=== PATIENT | male | born 1985 | race Caucasian/White ===

== ENCOUNTER 2019-05-10 16:42 | Emergency (ER) | payer SELFPAY ==
[~2019-05-10] VITALS: Ht 182.9 cm; Wt 80.0 kg
[~2019-05-10 16:42] MED LIST: OLAN20TA14 PO; RISP2TAB35 PO
[2019-05-10] MEDS ORDERED: CEFAZOLIN 1,000 MG IM ONE (17:00)
--- NOTE | 2019-05-10 17:00 | NUR ---
THIS IS A 33 YO M BIB EMS FROM [facility]. PT WAS AT [facility] FOR BILAT FOOT INFT, PT WAS COMBATIVE AND GIVEN B52. AFTER DC PT DEFECATED OUTSIDE ED. LAW ENFORCEMENT ESCORTED PT HERE AND RELEASED HIM FROM CUSTODY. PT IS DROWSY, EASILY AWAKENED. RESPONDING APPROPRIATELY TO QUESTIONS. RESP EVEN AND UNLABORED. NADN. CLOTHES REMOVED AND PLACED IN GOWN. RESTING ON [employer] W/ CALL LIGHT IN REACH. LAB IN ROOM.
--- NOTE | 2019-05-10 17:46 | NUR ---
LAB IN ROOM.
--- NOTE | 2019-05-10 17:50 | NUR ---
LAB REPORTS UNABLE TO DRAW BLOOD DUE TO SCAR TISSUE. WILL CONTACT ANOTHER TECH TO COME AND ATTEMPT.
[2019-05-10] MEDS ORDERED: CEFAZOLIN 1,000 MG ONE (17:52)
--- NOTE | 2019-05-10 18:02 | NUR ---
PT MEDICATED PER EMAR. ED DIET TRAY DELIVERED.
--- NOTE | 2019-05-10 18:15 | NUR ---
LAB UNABLE TO DRAW BLOOD. WENT IN ROOM TO ATTEMPT FEMORAL BLOOD DRAW. PT AGGRESSIVE AND UNCOOPERATIVE. PT REPORTS HE WANTS TO LEAVE.
== END 2019-05-10 19:27 | disposition home or self-care (01) ==
LOC: ED 17:00
DX: F19.10 Other psychoactive substance abuse, uncomplicated (principal); Z72.9 Problem related to lifestyle, unspecified
CPT/HCPCS: 96372; 99283; J0690

== ENCOUNTER 2019-05-13 08:11 | Inpatient (IN) | payer OTHER ==
[~2019-05-13] VITALS: Ht 188 cm; Wt 77.0 kg
--- NOTE | 2019-05-13 09:00 | NUR ---
requested records from [facility].
--- NOTE | 2019-05-13 09:00 | NUR ---
pt presents to ED in own wheelchair, however pt is ambulatory. pt seeking care for bilateral foot pain. pt wheeled to room at this time from lobby, pt denies cough, fever, travel or sick contacts. pt changed into gown and provided with warm blanket. awaiting provider assessment and orders at this time.
[2019-05-13] MEDS ORDERED: ACETAMINOPHEN 500 MG TABLET PO ONE (09:30)
[2019-05-13] MEDS ORDERED: KETOROLAC 30 MG/1 ML IM ONE (09:30)
[2019-05-13] MEDS ORDERED: IBUPROFEN 200 MG TABLET ONE (09:36)
[2019-05-13 09:41] LABS: BASOPHILS # (AUTO) 0.05 x10^3/uL (0-0.1); BASOPHILS % (AUTO) 1 % (0-1); EOSINOPHILS # (AUTO) 0.33 x10^3/uL (0-0.4); EOSINOPHILS % (AUTO) 3 % (1-7); LYMPHOCYTES # (AUTO) 1.84 x10^3/uL (1-3.4); LYMPHOCYTES % (AUTO) 19 % (22-44); MD NO; MEAN CORPUSCULAR HEMOGLOBIN 31.2 pg (27.5-34.5); MEAN CORPUSCULAR HGB CONC 32.7 g/dL (33.2-36.2); MEAN CORPUSCULAR VOLUME 95.6 fL (81-97); MEAN PLATELET VOLUME 7.7 fL (7.4-10.4); MONOCYTES # (AUTO) 0.93 x10^3/uL (0.2-0.8); MONOCYTES % (AUTO) 9 % (2-9); NEUTROPHILS % (AUTO) 68 % (42-75); PLATELET COUNT 332 x10^3/uL (130-400); RED BLOOD COUNT 4.45 x10^6/uL (4.38-5.82); RED CELL DISTRIBUTION WIDTH 15.3 % (9.4-14.8)
[2019-05-13 09:52] LABS: ALBUMIN 2.7 g/dL (3.4-5.0); ANION GAP 4 mmol/L (5-15); CHLORIDE 109 mmol/L (98-107); CREATININE 0.69 mg/dL (0.7-1.3)
--- NOTE | 2019-05-13 09:52 | NUR ---
CALLED [facility] FOR 2ND REQUEST FOR MEDICAL RECORDS
--- NOTE | 2019-05-13 09:58 | NUR ---
pt becoming agitated, seeking to leave AMA but also demanding percocet and benadryl for skin itchiness. pt c/o visual and auditory hallucinations, being abrasive to staff. RUSLAN Worthington notified. pts feet have been evaluated by RN and RUSLAN Worthington, there are multiple lesions to feet, psoriatic plaque throughout, and macerated skin to both feet. pt to have wound care as tolerated.
[2019-05-13] MEDS ORDERED: IBUPROFEN 800 MG TABLET PO ONE (10:00)
[2019-05-13] MEDS ORDERED: DIPHENHYDRAMINE 50 MG CAPSULE ONE (10:05)
[2019-05-13] MEDS ORDERED: ACETAMINOPHEN 500 MG TABLET ONE (10:05)
--- NOTE | 2019-05-13 10:14 | NUR ---
pt previously refused xray, xray techs at bedside to reattempt. pt medicated per emar, tolerated well. EDTs attempted to provide wound care with betadine soak and bandaging (RUSLAN's recommendations), pt refusing despite extensive discussion and education by RN regarding importance of wound care. pt uncooperative and agitated. RUSLAN Worthington notified.
--- NOTE | 2019-05-13 10:17 | NUR ---
pt continuing to refuse xrays at this time.
[2019-05-13] MEDS ORDERED: DIPHENHYDRAMINE 25 MG CAPSULE PO ONE (10:30)
--- NOTE | 2019-05-13 10:30 | NUR ---
RUSLAN Worthington notified pt is still refusing all interventions. EDMD Kiddcovicnilsa to evaluate and speak with patient.
[2019-05-13] MEDS ORDERED: SODIUM CHLORIDE FLUSH 10ML SYR IVF ONE (11:00)
[2019-05-13] MEDS ORDERED: VANCOMYCIN 1,400 MG in SODIUM CHLORIDE 0.9% 250 ML IV ONE (11:00)
[2019-05-13] MEDS ORDERED: VANCOMYCIN PER PHARMACY MC ONE (11:00)
[2019-05-13] MEDS ORDERED: AMPICILLIN/SULBACTAM 3 GM in SODIUM CHLORIDE 0.9% 100 ML IV ONE (11:00)
[2019-05-13] MEDS ORDERED: HYDROcodone/APAP 5/325 TABLET PO ONE (11:00)
--- NOTE | 2019-05-13 11:30 | NUR ---
KADY CASIANO ATTEMPTED TO START PIV FOR IV ABX, PT REFUSING. SUZANNE MARIN NOTIFIED.
--- NOTE | 2019-05-13 11:53 | NUR ---
PT NOW ACCEPTING POC FOR ADMIT AND IV ABX. PT A&O, RESPS EVEN AND UNLABORED. TASK KADY CASIANO AT BEDSIDE FOR PIV PLACEMENT. BP AND SPO2 MONITORS IN PLACE .
[2019-05-13] MEDS: TRIAMCINOLONE CRM 0.1%, 15GM TP SCH ×3 (12:00→21:00)
[2019-05-13] MEDS ORDERED: morphine SULFATE 10 MG/ML, 1ML IVPush PRN (12:00)
[2019-05-13] MEDS ORDERED: PROMETHAZINE 25 MG/ML, 1ML IM PRN (12:00)
[2019-05-13] MEDS ORDERED: KETOROLAC 30 MG/1 ML IV PRN (12:00)
[2019-05-13] MEDS ORDERED: CYCLOBENZAPRINE 10 MG TABLET PO PRN (12:00)
[2019-05-13] MEDS ORDERED: DIPHENHYDRAMINE 25 MG CAPSULE PO PRN (12:00)
[2019-05-13] MEDS ORDERED: ACETAMINOPHEN 325 MG TABLET PO PRN (12:00)
[2019-05-13] MEDS ORDERED: LABETALOL 5MG/ML, 20ML IVPush PRN (12:00)
[2019-05-13] MEDS ORDERED: VANCOMYCIN PER PHARMACY MC PRN (12:00)
[2019-05-13] MEDS ORDERED: hydrALAzine 20 MG/ML, 1ML IVPush PRN (12:00)
[2019-05-13] MEDS ORDERED: ONDANSETRON 2MG/ML, 2ML IVPush PRN (12:00)
--- NOTE | 2019-05-13 12:14 | NUR ---
SBAR TELEPHONE HAND-OFF REPORT GIVEN TO KADY LOVE. PT READY TO GO TO HOSPITAL ROOM.
[2019-05-13] MEDS ORDERED: NEOSPORIN OINT. PKT 1 PACKET ONE (12:15)
[2019-05-13 12:16] LABS: INTERNATIONAL NORMALIZED RATIO 0.94 (0.93-1.1)
[2019-05-13] MEDS ORDERED: HYDROcodone/APAP 5/325 TABLET ONE (12:19)
[2019-05-13 12:36] LABS: C-REACTIVE PROTEIN, QUANT 0.07 mg/dL (0.02-0.49)
--- NOTE | 2019-05-13 12:38 | NUR ---
PT TO MRI AT THIS TIME, THEN AMANDA, REFERRAL COORDINATOR AGREES TO TAKE PATIENT TO HIS ROOM.
[2019-05-13 13:00] LABS: HCT (SEDRATE) 42.5 % (39.2-51.8)
[2019-05-13 13:20] VITALS: BP 109/61
[2019-05-13 13:58] LABS: AMPHETAMINE SCREEN, URINE Negative (Negative); BARBITURATE SCREEN, URINE Negative (Negative); BENZODIAZEPINE SCREEN, URINE Negative (Negative); CANNABINOID SCREEN, URINE Negative (Negative); COCAINE SCREEN, URINE Negative (Negative); METHADONE SCREEN, URINE Negative (Negative); OPIATE SCREEN, URINE Negative (Negative)
[2019-05-13] MEDS ORDERED: PHARMACOKINETIC CONSULTATION MC ONE (14:00)
[2019-05-13] MEDS ORDERED: PHARMACOKINETIC MONITORING MC PRN (14:00)
[2019-05-13] MEDS: SODIUM CHLORIDE 0.9% 1,000 ML IV SCH ×2 (15:00→21:13)
[2019-05-13] MEDS: PIPERACILLIN/TAZO/PMX 3.375GM 50 ML IV SCH ×2 (15:00→20:00)
[2019-05-13] MEDS: OXYcodone/APAP 5/325MG TABLET PO PRN (18:39)
[2019-05-13 19:25] VITALS: BP 118/72
[2019-05-13] MEDS: HEPARIN 5,000 UNITS/ML, 1ML SQ SCH (19:30)
[2019-05-14] MEDS: VANCOMYCIN 1,400 MG in SODIUM CHLORIDE 0.9% 250 ML IV SCH ×2 (00:23→14:37)
[2019-05-14 01:11] VITALS: BP 114/72
[2019-05-14] MEDS: OXYcodone/APAP 5/325MG TABLET PO PRN ×3 (01:22→10:58)
[2019-05-14] MEDS: PIPERACILLIN/TAZO/PMX 3.375GM 50 ML IV SCH ×3 (02:00→12:01)
[2019-05-14] MEDS: HEPARIN 5,000 UNITS/ML, 1ML SQ SCH ×2 (03:08→12:01)
[2019-05-14 07:40] VITALS: BP 107/69
[2019-05-14] MEDS: TRIAMCINOLONE CRM 0.1%, 15GM TP SCH ×2 (10:54→16:13)
[2019-05-14] MEDS: SODIUM CHLORIDE 0.9% 1,000 ML IV SCH (11:03)
[2019-05-14] MEDS ORDERED: AMPICILLIN/SULBACTAM 3 GM in SODIUM CHLORIDE 0.9% 100 ML IV SCH (15:30)
== END 2019-05-14 19:19 | disposition home or self-care (01) | DRG 603 ==
LOC: ED 11:17 → EDIP 11:18 → ED 12:17 → 3N 13:01
PROVIDERS: ADMIT Internal Medicine; ATTEND Family Medicine
DX: L03.115 Cellulitis of right lower limb (principal); L97.419 Non-pressure chronic ulcer of right heel and midfoot with unspecified severity; B18.2 Chronic viral hepatitis C; L03.116 Cellulitis of left lower limb; F39 Unspecified mood [affective] disorder; L40.0 Psoriasis vulgaris; Z59.0 Homelessness
CPT/HCPCS: 36415; 80048; 80307; 82040; 82550; 83605; 85025; 85610; 85651; 85730; 86140; 87040; 87070; 87077; 87147; 87186; 87205; G0378; J0295; J2543; J3370; J7030; J7050; Q0163

== ENCOUNTER 2019-05-14 19:21 | Emergency (ER) | payer OTHER ==
[~2019-05-14] VITALS: Ht 188 cm; Wt 78.6 kg
[2019-05-14 19:42] VITALS: BP 100/61
--- NOTE | 2019-05-14 20:02 | NUR ---
MANUFACTURING ENGINEER CHIEF: NOT IN LOBBY WHEN CALLED FOR ROOM
--- NOTE | 2019-05-14 20:57 | NUR ---
REPORT RECEIVED FROM KADY COVARRUBIAS.
[2019-05-14] MEDS ORDERED: AMPICILLIN/SULBACTAM 3 GM in SODIUM CHLORIDE 0.9% 100 ML IV ONE (21:30)
[2019-05-14] MEDS ORDERED: SODIUM CHLORIDE FLUSH 10ML SYR IVF ONE (21:30)
[2019-05-14] MEDS ORDERED: VANCOMYCIN PER PHARMACY MC PRN (21:30)
[2019-05-14] MEDS ORDERED: KETOROLAC 30 MG/1 ML IVPush ONE (21:30)
--- NOTE | 2019-05-14 21:33 | NUR ---
ATTEMPTED TO PLACE IV BY THIS RN. IV INSERTED WITH FLASH, PT JERKED ARM AWAY AND SHOUTED "I DONT WANT THIS ANYMORE, IM LEAVING". PT REFUSED IV AND LAB DRAWS. PT EDUCATED BY THIS RN AND LOLIS ARTEAGA. PT CONTINUED SHOUTING AT STAFF AND REFUSING CARE. SECURITY CALLED FOR ASSIST TO D/C. PT AWARE. PT SHOUTING "FUCK YOU, FUCK THIS, I HAVE PSYCHOSIS, YOU CANT DO THIS TO ME".
--- NOTE | 2019-05-14 21:47 | NUR ---
PT FEET WRAPPED WITH GAUZE DRESSING. PT CONTINUES TO SHOUT AT STAFF. STATES "GIVE ME MORPHINE, I SHOULD GET IT AFTER I HAD TO DEAL WITH ALL THIS SHIT". PT STATES "I WANT A BUS PASS". SHOUTING "GO FUCK YOURSELF AT SECURITY DURING WALK TO EXIT.
[2019-05-14] MEDS ORDERED: VANCOMYCIN 2,000 MG in SODIUM CHLORIDE 0.9% 500 ML IV ONE (22:00)
== END 2019-05-14 21:50 | disposition home or self-care (01) ==
LOC: ED 21:15
DX: L03.114 Cellulitis of left upper limb (principal); L03.115 Cellulitis of right lower limb
CPT/HCPCS: 99281

== ENCOUNTER 2019-05-15 07:39 | Emergency (ER) | payer SELFPAY ==
[~2019-05-15] VITALS: Ht 188 cm; Wt 80.0 kg
[2019-05-15 07:48] VITALS: BP 123/56
[2019-05-15] MEDS ORDERED: ACETAMINOPHEN 325 MG TABLET ONE (08:21)
[2019-05-15] MEDS ORDERED: DOXYCYCLINE 100MG TABLET ONE (08:22)
[2019-05-15] MEDS ORDERED: ACETAMINOPHEN 325 MG TABLET PO ONE (08:30)
[2019-05-15] MEDS ORDERED: DOXYCYCLINE 100MG TABLET PO ONE (08:30)
--- NOTE | 2019-05-15 10:07 | NUR ---
third call placed to central supply to send rocker boot so pt can be discharged. one boot recieved but two odered, awaiting other boot
== END 2019-05-15 11:23 | disposition home or self-care (01) ==
LOC: ED 08:12
DX: S90.922A Unspecified superficial injury of left foot, initial encounter (principal); S90.921A Unspecified superficial injury of right foot, initial encounter; Z72.9 Problem related to lifestyle, unspecified; X58.XXXA Exposure to other specified factors, initial encounter; Y93.89 Activity, other specified; Y92.89 Other specified places as the place of occurrence of the external cause; Y99.8 Other external cause status
CPT/HCPCS: 99283

== ENCOUNTER 2019-05-28 13:57 | Emergency (ER) | payer SELFPAY ==
--- NOTE | 2019-05-28 14:07 | NUR ---
PT REFUSING TO BE TREATED OR SEEN AT THIS TIME.
--- NOTE | 2019-05-28 14:16 | NUR ---
THIS TECH ATTEMPTED TO ASSIST PT TO CHANGE INTO A GOWN. PT UNWILLING TO CHANGE INTO A GOWN AT FIRST AND STATED "I DO NOT WANT TO BE HERE." EXPLAINED TO PT THAT HE WOULD NOT RECEIVE CARE, TO WHICH HE AGREED. PT WAS ASKED TO GET INTO HIS WHEELCHAIR FOR DISCHARGE AND THEN HE STATED THAT HE NEEDED HIS BLOOD TO BE DRAWN BECAUSE HE "HAS BAD BLOOD." EXPLAINED AGAIN THAT HE NEEDS TO CHANGE INTO A GOWN. PT AGREED TO CHANGE. UPON RETURN PT WAS STILL NOT CHANGED. PT WAS ASKED IF HE WAS REFUSING CARE, TO WHICH HE REPLIED "YES." PT REQUESTED A PAIR OF HOSPITAL SOCKS BEFORE HE LEFT. SOCKS WERE PROVIDED.
== END 2019-05-28 14:20 | disposition left against medical advice (07) ==
LOC: ED 14:09
DX: Z53.21 Procedure and treatment not carried out due to patient leaving prior to being seen by health care provider (principal)

== ENCOUNTER 2019-05-28 17:19 | Emergency (ER) | payer SELFPAY ==
--- NOTE | 2019-05-28 17:25 | NUR ---
ADMINISTRATIVE ASSISTANT FRONT DESK: ROSAMARIA SANCHES FOR BILATERAL FOOT PAIN R/T DIABETIC ULCERS. PER PT "MY FEET HURT SO BAD, YOU GUYS NEED TO FIX THEM." PT UNCOOPERATIVE, REFUSING ALL VITALS, STATES "JUST GIVE ME SOME FUCKING MORPHINE ALREADY." PT REFUSING TO BE SEEN STATES "GET ME THE FUCK OUT OF HERE." YELLING AND VERBALLY AGRESSIVE WITH STAFF. DR. NARAYAN, [facility], AND ELIEL HILLMAN PRESENT TO TRIAGE TO ASSIST WITH DE-ESCALATION, PT CONTINUED TO BE AGGRESSIVE, SECURITY CALLED, PT SIGNED AMA FORM AND WAS ESCORTED OUT PER HIS WISHES WITH SECURITY.
== END 2019-05-28 17:53 | disposition left against medical advice (07) ==
LOC: ED 17:45
DX: M79.671 Pain in right foot (principal); M79.672 Pain in left foot; Z53.21 Procedure and treatment not carried out due to patient leaving prior to being seen by health care provider

== ENCOUNTER 2019-08-05 17:29 | Emergency (ER) | payer MEDICAID ==
[~2019-08-05] VITALS: Ht 188 cm; Wt 85.0 kg
[2019-08-05 17:48] VITALS: BP 112/69
[2019-08-05] MEDS ORDERED: HYDROcodone/APAP 5/325 TABLET ONE (18:50)
[2019-08-05] MEDS ORDERED: HYDROcodone/APAP 5/325 TABLET PO ONE (19:00)
[2019-08-05] MEDS ORDERED: CEPHALEXIN 500 MG CAPSULE ONE (19:06)
--- NOTE | 2019-08-05 19:19 | NUR ---
CLOTHES, SHOES, AND SOCKS PROVIDED. PT EDUCATED ON LIFESTYLE CHANGES, MEDICATION COMPLIANCE, PERSONAL HYGEINE. PT VERBALIZES UNDERSTANDING.
[2019-08-05] MEDS ORDERED: CEPHALEXIN 500 MG CAPSULE PO ONE (19:30)
== END 2019-08-05 19:47 | disposition home or self-care (01) ==
LOC: ED 18:38
DX: L03.012 Cellulitis of left finger (principal)
CPT/HCPCS: 99283

== ENCOUNTER 2019-08-06 00:14 | Emergency (ER) | payer MEDICAID ==
[~2019-08-06] VITALS: Ht 188 cm; Wt 70.4 kg
[2019-08-06 00:17] VITALS: BP 123/79
--- NOTE | 2019-08-06 01:00 | NUR ---
DC EDUCATION PROVIDED, PT DEMONSTRATES UNDERSTANDING. "STATES I NEED WOUND CLINICAL REHABILITATION AIDE AND SKIN GRAFT GLOVES". PT PROVIDED CLEAN SOCKS. DC EDUCATION PROVIDED, PT DEMONSTRATES UNDERSTANDING. PT AMBULATED STEADILY TO DC WITH RN
--- NOTE | 2019-08-06 01:08 | NUR ---
RN TO ROOM TO WALK PT TO DC. PT HAD THROWN CLEAN SOCKS AWAY. "I JUST NEED CLEAN SLIPPER SOCKS". PT MADE AWARE THAT THAT WAS WHAT HE WAS GIVEN AND HE THREW THEM OUT. PT ASKED TO DRESS FOR DC. WILL CONTACT SECURITY WITH ANY FURTHER ISSUE WITH DC.
--- NOTE | 2019-08-06 01:28 | NUR ---
PT WITH ONE SHOE. UNABLE TO LOCATE DONATION SHOES IN CLOSET. PT PROVIDED CLEAN SHIRT/JACKET AND HOSPITAL SOCKS AND ASKED TO DRESS.
--- NOTE | 2019-08-06 01:49 | NUR ---
PT AMBUALTED STEADILY TO DC WITH RN. TAXI VOUCHER PROVIDED FOR SAFE TRANSPORT TO ADDRESS PROVIDED BY PT.
== END 2019-08-06 01:50 | disposition home or self-care (01) ==
LOC: ED 01:00
DX: L03.012 Cellulitis of left finger (principal); F17.290 Nicotine dependence, other tobacco product, uncomplicated
CPT/HCPCS: 99283

== ENCOUNTER 2019-08-16 13:57 | Emergency (ER) | payer MEDICAID ==
[~2019-08-16] VITALS: Ht 188 cm; Wt 84.0 kg
[2019-08-16 14:28] VITALS: BP 120/82
--- NOTE | 2019-08-16 14:38 | NUR ---
Worried about the scabs on left finger, left leg. showered pt, pt covered in stool.gave pt new clothing
--- NOTE | 2019-08-16 14:48 | NUR ---
Report received from KADY Conway. Plan of care discussed. Patient to be discharged per md orders
[2019-08-16] MEDS ORDERED: IBUPROFEN 200 MG TABLET ONE (14:58)
[2019-08-16] MEDS ORDERED: IBUPROFEN 200 MG TABLET PO ONE (15:00)
--- NOTE | 2019-08-16 15:18 | NUR ---
Patient medicated per emar, tolerated well. Repeatedly instructed patient to get dressed in clothing provided by [facility]. Patient has own wheelchair in room. Security called due to uncooperative behavior to this RN
== END 2019-08-16 15:34 | disposition home or self-care (01) ==
LOC: ED 15:06
DX: L40.0 Psoriasis vulgaris (principal); F17.200 Nicotine dependence, unspecified, uncomplicated
CPT/HCPCS: 99283

== ENCOUNTER 2019-08-17 02:14 | Emergency (ER) | payer MEDICAID ==
[~2019-08-17] VITALS: Ht 188 cm; Wt 74.0 kg
[2019-08-17 02:21] VITALS: BP 136/90
--- NOTE | 2019-08-17 02:28 | NUR ---
EKG OF PT DONE IN TRIAGE FOR RAPID HR
[2019-08-17] MEDS ORDERED: NEOSPORIN OINT. PKT 1 PACKET ONE (03:02)
== END 2019-08-17 03:32 | disposition home or self-care (01) ==
LOC: ED 02:55
DX: F15.129 Other stimulant abuse with intoxication, unspecified (principal); L40.0 Psoriasis vulgaris; R94.31 Abnormal electrocardiogram [ECG] [EKG]; F17.210 Nicotine dependence, cigarettes, uncomplicated; Z72.9 Problem related to lifestyle, unspecified
CPT/HCPCS: 93005; 99283; 99406

== ENCOUNTER 2019-09-16 23:19 | Emergency (ER) | payer MEDICAID ==
[~2019-09-16] VITALS: Ht 188 cm; Wt 86.5 kg
[2019-09-16 23:27] VITALS: BP 117/71
[2019-09-16] MEDS ORDERED: KETOROLAC 30 MG/1 ML IM ONE (23:30)
[2019-09-16] MEDS ORDERED: KETOROLAC 30 MG/1 ML ONE (23:54)
[2019-09-17] MEDS ORDERED: chlorPROMAZINE 10MG TABLET PO ONE
[2019-09-17] MEDS ORDERED: NEOSPORIN OINT. PKT 1 PACKET ONE (00:04)
== END 2019-09-17 00:14 ==
LOC: ED 23:44
DX: F29 Unspecified psychosis not due to a substance or known physiological condition (principal); R45.851 Suicidal ideations; R21 Rash and other nonspecific skin eruption; Z91.14 Patient's other noncompliance with medication regimen; Z48.01 Encounter for change or removal of surgical wound dressing
CPT/HCPCS: 96372; 99283; J1885

== ENCOUNTER 2019-10-12 10:52 | Emergency (ER) | payer MEDICAID ==
[~2019-10-12] VITALS: Ht 188 cm; Wt 69.4 kg
[2019-10-12 10:56] VITALS: BP 108/62
[2019-10-12] MEDS ORDERED: IBUPROFEN 600 MG TABLET ONE (11:24)
--- NOTE | 2019-10-12 11:24 | NUR ---
MED REQUESTED FROM PHARMACY
[2019-10-12] MEDS ORDERED: IBUPROFEN 600 MG TABLET PO ONE (11:30)
[2019-10-12] MEDS ORDERED: chlorPROMAZINE 10MG TABLET PO ONE (11:30)
--- NOTE | 2019-10-12 11:31 | NUR ---
MEDS ADMIN PER APR.
--- NOTE | 2019-10-12 11:34 | NUR ---
LACERATION TO LIP FROM 4 WEEKS AGO, WELL APPROXIMATED, NO DRAINAGE NOTED.
== END 2019-10-12 11:36 ==
LOC: ED 11:30
DX: F20.9 Schizophrenia, unspecified (principal); S00.501D Unspecified superficial injury of lip, subsequent encounter; Z76.0 Encounter for issue of repeat prescription; Z59.0 Homelessness; X58.XXXD Exposure to other specified factors, subsequent encounter
CPT/HCPCS: 99283

== ENCOUNTER 2019-11-04 08:13 | Emergency (ER) | payer MEDICAID ==
[~2019-11-04] VITALS: Ht 188 cm; Wt 85.0 kg
--- NOTE | 2019-11-04 08:28 | NUR ---
THIS IS A 34 YO M BIB EMS W/ C/O AUDITORY AND VISUAL HALLUCINATIONS. PT REPORTS BEING OFF OF THORAZINE RX FOR 2 MONTHS. PT DENIES SI/HI. PT BADYCARDIC, OTHER VS WDL. PT HAS DEVELOPING ABCESS ON RT FOREARM FROM REPORTED METH INJECTION. UPDATED. PT CHANGED INTO GOWN. PROVIDED URINAL AND EDUCATED ON NEED FOR URINE SAMPLE. PT COOPERATIVE AT THIS TIME. RESP EVEN AND UNLABORED, SUNIL.
[2019-11-04] MEDS ORDERED: LIDOCAINE-MPF 1%, 5ML INFIL ONE (08:30)
[2019-11-04] MEDS ORDERED: LIDOCAINE-MPF 1%, 5ML ONE (08:32)
[2019-11-04] MEDS ORDERED: NEOSPORIN OINT. PKT 1 PACKET ONE (08:55)
--- NOTE | 2019-11-04 08:55 | NUR ---
ED SAFETY DIET TRAY DELIVERED TO PT.
[2019-11-04 09:02] LABS: BASOPHILS # (AUTO) 0.05 x10^3/uL (0-0.1); BASOPHILS % (AUTO) 1 % (0-1); EOSINOPHILS % (AUTO) 4 % (1-7); LYMPHOCYTES # (AUTO) 1.35 x10^3/uL (1-3.4); LYMPHOCYTES % (AUTO) 18 % (22-44); MD NO; MEAN CORPUSCULAR HEMOGLOBIN 30.7 pg (27.5-34.5); MEAN CORPUSCULAR HGB CONC 32.6 g/dL (33.2-36.2); MEAN PLATELET VOLUME 8.1 fL (7.4-10.4); MONOCYTES # (AUTO) 0.63 x10^3/uL (0.2-0.8); MONOCYTES % (AUTO) 8 % (2-9); NEUTROPHILS # (AUTO) 5.39 x10^3/uL (1.8-6.8); NEUTROPHILS % (AUTO) 70 % (42-75); PLATELET COUNT 264 x10^3/uL (130-400); RED BLOOD COUNT 4.75 x10^6/uL (4.38-5.82)
[2019-11-04 09:09] LABS: ALBUMIN 3.1 g/dL (3.4-5.0); ANION GAP 5 mmol/L (5-15); CALCIUM 8.5 mg/dL (8.5-10.1); CHLORIDE 110 mmol/L (98-107); CREATININE 0.58 mg/dL (0.7-1.3); SALICYLATE LEVEL < 1.7 mg/dL (2.8-20.0)
--- NOTE | 2019-11-04 09:09 | NUR ---
URINE COLLECTED AND SENT TO LAB.
[2019-11-04 09:34] LABS: AMPHETAMINE SCREEN, URINE Positive (Negative); BARBITURATE SCREEN, URINE Negative (Negative); BENZODIAZEPINE SCREEN, URINE Negative (Negative); CANNABINOID SCREEN, URINE Positive (Negative); OPIATE SCREEN, URINE Negative (Negative)
[2019-11-04 09:37] LABS: COCAINE SCREEN, URINE Negative (Negative); METHADONE SCREEN, URINE Negative (Negative)
--- NOTE | 2019-11-04 09:51 | NUR ---
PT RESTING ON GURNEY W/ CALL LIGHT IN REACH AND SIDE RAILS UPX2. RESP EVEN AND UNLABORED, TEDDYN. AWAITING PSYCH EVAL.
--- NOTE | 2019-11-04 11:09 | NUR ---
PT SLEEPING ON GURNEY W/ CALL LIGHT IN REACH AND SIDE RAILS UPX2. RESP EVEN AND UNLABORED, NADN. AWAITING PSYCH EVAL.
[2019-11-04 11:36] VITALS: BP 105/55
== END 2019-11-04 12:13 | disposition home or self-care (01) ==
LOC: ED 10:00
DX: F15.151 Other stimulant abuse with stimulant-induced psychotic disorder with hallucinations (principal); L02.413 Cutaneous abscess of right upper limb; R44.1 Visual hallucinations; Z72.9 Problem related to lifestyle, unspecified
CPT/HCPCS: 10060; 36415; 80048; 80307; 82040; 85025; 99283

== ENCOUNTER 2019-11-04 18:20 | Emergency (ER) | payer MEDICAID ==
[~2019-11-04] VITALS: Ht 188 cm; Wt 85.0 kg
[2019-11-04 18:38] VITALS: BP 126/80
--- NOTE | 2019-11-04 21:16 | NUR ---
Pt asleep, was seen here earlier today for the same. Pt requesting letting him sleep. Pt appears in no distress or signs of trauma.
--- NOTE | 2019-11-04 22:11 | NUR ---
Patient/Caregiver given discharge instructions and they have confirmed that they understand the instructions. Patient ambulatory with steady gait.
== END 2019-11-04 22:12 | disposition home or self-care (01) ==
LOC: ED 19:32
DX: F15.10 Other stimulant abuse, uncomplicated (principal); F22 Delusional disorders
CPT/HCPCS: 99283

== ENCOUNTER 2019-11-06 15:02 | Emergency (ER) | payer MEDICAID ==
[~2019-11-06] VITALS: Ht 188 cm; Wt 84.0 kg
[2019-11-06 15:25] VITALS: BP 115/65
[2019-11-06] MEDS ORDERED: IBUPROFEN 200 MG TABLET ONE (16:18)
[2019-11-06] MEDS ORDERED: LIDOCAINE 1%-EPI 1:100K, 20ML ONE (16:24)
[2019-11-06] MEDS ORDERED: LIDOCAINE 1%-EPI 1:100K, 20ML SQ ONE (16:30)
[2019-11-06] MEDS ORDERED: IBUPROFEN 200 MG TABLET PO ONE (16:30)
[2019-11-06] MEDS ORDERED: NEOSPORIN OINT. PKT 1 PACKET ONE (16:36)
== END 2019-11-06 17:25 | disposition home or self-care (01) ==
LOC: ED 16:36
DX: L02.413 Cutaneous abscess of right upper limb (principal); M79.671 Pain in right foot; M79.672 Pain in left foot
CPT/HCPCS: 10060; 99282; J3490

== ENCOUNTER 2019-11-07 10:28 | Emergency (ER) | payer MEDICAID ==
[~2019-11-07] VITALS: Ht 188 cm; Wt 84.0 kg
[2019-11-07 10:29] VITALS: BP 115/71
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
--- NOTE | 2019-11-07 10:51 | NUR ---
report to KADY España. pt up to inga atkins assist from [facility]. Pt to provide ua specimen.
--- NOTE | 2019-11-07 11:43 | NUR ---
Pt refusing lab draw despite education on process of medical clearance and need for blood draw to medically clear him. Dr. Orozco made aware of this.
--- NOTE | 2019-11-07 12:11 | NUR ---
Pt resting in bed with eyes closed, resp even and unlabored, NADN.
--- NOTE | 2019-11-07 13:50 | NUR ---
Pt's legal hold decertified by Malia CARLSON. Pt ok for dc to follow up with mental health referrals provided in dc paperwork. Pt able to dress self fully. Pt provided with socks to wear as well as multiple bottles of water and crackers per request. Pt ambulatory out of unit with steady gait, SUNIL.
== END 2019-11-07 13:53 | disposition home or self-care (01) ==
LOC: ED 10:45
DX: F19.14 Other psychoactive substance abuse with psychoactive substance-induced mood disorder (principal); F41.9 Anxiety disorder, unspecified; F15.10 Other stimulant abuse, uncomplicated; F12.10 Cannabis abuse, uncomplicated; M79.671 Pain in right foot; M79.672 Pain in left foot; F17.200 Nicotine dependence, unspecified, uncomplicated
CPT/HCPCS: 99283

== ENCOUNTER 2019-11-07 15:27 | Emergency (ER) | payer MEDICAID ==
[~2019-11-07] VITALS: Ht 188 cm; Wt 84.0 kg
[2019-11-07 15:32] VITALS: BP 111/70
--- NOTE | 2019-11-07 16:34 | NUR ---
THROUGHPUT RN: PT STATES "I DON'T EVEN WANT TO WAIT ANYMORE! I'M FUCKING LEAVING!" PT WALKED OUT OF AMBULANCE BAY. PT AMBULATORY WITH STEADY GAIT.
--- NOTE | 2019-11-07 16:34 | NUR ---
PT GOT UP FROM WHEELCHAIR, STATING HE WAS GOING TO LEAVE AND TAKE THE BLANKET PROVIDED TO HIM. PT INFORMED HE COULD NOT TAKE THE HOSPITAL'S BLANKET. PT CONTINUED TO WALK WITH STEADY GAIT OUT THE DOOR USING MULTIPLE EXPLETIVES HE LEFT. PT ALSO HAD BAG OF PRETZELS THAT HE CAME TO ED WITH AND THREW AWAY BY HIMSELF, STATING "I DON'T WANT THESE." PT WAS NOT ON A LEGAL HOLD AND COULD NOT BE DETAINED AGAINST HIS WILL.
== END 2019-11-07 16:41 | disposition left against medical advice (07) ==
LOC: ED 16:30
DX: M79.671 Pain in right foot (principal); M79.672 Pain in left foot; Z53.21 Procedure and treatment not carried out due to patient leaving prior to being seen by health care provider

== ENCOUNTER 2019-11-17 16:18 | Emergency (ER) | payer MEDICAID ==
[~2019-11-17] VITALS: Ht 188 cm; Wt 75.3 kg
[2019-11-17 16:51] VITALS: BP 95/58
[2019-11-17 17:12] LABS: BASOPHILS # (AUTO) 0.07 x10^3/uL (0-0.1); BASOPHILS % (AUTO) 1 % (0-1); EOSINOPHILS # (AUTO) 0.47 x10^3/uL (0-0.4); EOSINOPHILS % (AUTO) 7 % (1-7); LYMPHOCYTES # (AUTO) 1.67 x10^3/uL (1-3.4); LYMPHOCYTES % (AUTO) 24 % (22-44); MD NO; MEAN CORPUSCULAR HEMOGLOBIN 31.1 pg (27.5-34.5); MEAN CORPUSCULAR HGB CONC 33.2 g/dL (33.2-36.2); MEAN CORPUSCULAR VOLUME 93.7 fL (81-97); MEAN PLATELET VOLUME 7.9 fL (7.4-10.4); MONOCYTES # (AUTO) 0.64 x10^3/uL (0.2-0.8); MONOCYTES % (AUTO) 9 % (2-9); NEUTROPHILS # (AUTO) 4.28 x10^3/uL (1.8-6.8); NEUTROPHILS % (AUTO) 60 % (42-75); PLATELET COUNT 285 x10^3/uL (130-400); RED BLOOD COUNT 4.49 x10^6/uL (4.38-5.82); RED CELL DISTRIBUTION WIDTH 14.9 % (9.4-14.8)
[2019-11-17 17:23] LABS: ALANINE AMINOTRANSFERASE 36 U/L (12-78); ALBUMIN 3.2 g/dL (3.4-5.0); ANION GAP 7 mmol/L (5-15); CALCIUM 8.5 mg/dL (8.5-10.1); CHLORIDE 109 mmol/L (98-107); CREATININE 0.77 mg/dL (0.7-1.3)
[2019-11-17 17:25] LABS: ALKALINE PHOSPHATASE 91 U/L (45-117); BILIRUBIN,TOTAL 0.2 mg/dL (0.2-1.0); TOTAL PROTEIN 6.8 g/dL (6.4-8.2)
--- NOTE | 2019-11-17 17:37 | NUR ---
PT WAS LAYING ON THE GROUND. PT WAS ASKED TO SIT BACK WHEELCHAIR. PT STATED "I DON'T HAVE TO DO SHIT." PT THEN STOOD UP AND WALKED OUT THE THE ED.
--- NOTE | 2019-11-17 17:38 | NUR ---
PT WAS REMOVED OFF OF PREMSIS BY SECURITY.
== END 2019-11-17 17:40 | disposition home or self-care (01) ==
LOC: ED 16:19
DX: R19.7 Diarrhea, unspecified (principal); R10.9 Unspecified abdominal pain; R50.9 Fever, unspecified
CPT/HCPCS: 36415; 80053; 83690; 85025; 99283

== ENCOUNTER 2019-12-13 13:03 | Emergency (ER) | payer MEDICAID ==
[~2019-12-13] VITALS: Ht 175.3 cm; Wt 70.0 kg
[2019-12-13 13:08] VITALS: BP 139/72
--- NOTE | 2019-12-13 13:12 | NUR ---
Pt presents to ed c/o generalized si w/o a specific plan. Pt states recently being in [facility] and is still wearing a gown from there. States "they were not taking my seriously and they just discharged me." States long hx of depression and not currently on any home medications. Pt sat in front of charge desk w/ belongings still in place, to await a psych appropriate room. Pt in front of eyes of charge and TP rn. Awaiting si room for proper care.
--- NOTE | 2019-12-13 13:21 | NUR ---
Pt moved to room 38 at this time. Room secured and pt prompted to put all belongings into belongings bag.
--- NOTE | 2019-12-13 13:31 | NUR ---
RM SECURED, BELONGINGS BAGGED AND REMOVED FROM RM. PT DENIES NEEDS AT THIS TIME. RESTING COMFORTABLY IN [facility] IN HOSPITAL ATTIRE
[2019-12-13] MEDS ORDERED: KETOROLAC 30 MG/1 ML IM ONE (14:00)
--- NOTE | 2019-12-13 14:00 | NUR ---
PT SUPINE ON GURNEY WITH EYES CLOSED. PT DENIES ANY NEEDS AT THIS TIME. ROOM SECURE AND SITTER WITHIN VIEW. NO ADDITIONAL NEEDS AT THIS TIME.
[2019-12-13] MEDS ORDERED: KETOROLAC 30 MG/1 ML ONE (14:06)
[2019-12-13 14:21] LABS: BASOPHILS % (AUTO) 1 % (0-1); EOSINOPHILS % (AUTO) 0 % (1-7); LYMPHOCYTES % (AUTO) 23 % (22-44); MEAN CORPUSCULAR HEMOGLOBIN 30.7 pg (27.5-34.5); MEAN CORPUSCULAR HGB CONC 33.2 g/dL (33.2-36.2); MONOCYTES % (AUTO) 12 % (2-9); NEUTROPHILS % (AUTO) 64 % (42-75); PLATELET COUNT 242 x10^3/uL (130-400); RED BLOOD COUNT 4.66 x10^6/uL (4.38-5.82); RED CELL DISTRIBUTION WIDTH 14.9 % (9.4-14.8)
[2019-12-13 14:27] LABS: MD NO
[2019-12-13 14:35] LABS: ALANINE AMINOTRANSFERASE 42 U/L (12-78); ALBUMIN 3.3 g/dL (3.4-5.0); ANION GAP 8 mmol/L (5-15); CALCIUM 8.9 mg/dL (8.5-10.1); CHLORIDE 109 mmol/L (98-107)
[2019-12-13 14:36] LABS: SALICYLATE LEVEL < 1.7 mg/dL (2.8-20.0)
[2019-12-13 14:37] LABS: ALKALINE PHOSPHATASE 79 U/L (45-117); BILIRUBIN,TOTAL 0.4 mg/dL (0.2-1.0); CREATININE 0.73 mg/dL (0.7-1.3); TOTAL PROTEIN 7.1 g/dL (6.4-8.2)
--- NOTE | 2019-12-13 14:56 | NUR ---
PSYCH ALDO LOMBARDI AT BEDSIDE.
--- NOTE | 2019-12-13 15:10 | NUR ---
PT UPRIGHT ON GURNEY. SAFETY YEAGER DOWN, SITTER IN VIEW. PT REQUESTS WATER AND CRACKERS, PROVIDED. NO ADDITIONAL NEEDS AT THIS TIME. WILL CONTINUE TO MONITOR.
--- NOTE | 2019-12-13 16:00 | NUR ---
PT UPRIGHT ON GURNEY. PT EATING DINNER TRAY AND URINE SAMPLE PROVIDED. SAFETY YEAGER DOWN, SITTER IN VIEW. NO ADDITIONAL NEEDS AT THIS TIME. WILL CONTINUE TO MONITOR.
[2019-12-13 16:43] LABS: AMPHETAMINE SCREEN, URINE Negative (Negative); BARBITURATE SCREEN, URINE Negative (Negative); BENZODIAZEPINE SCREEN, URINE Negative (Negative); CANNABINOID SCREEN, URINE Negative (Negative); COCAINE SCREEN, URINE Negative (Negative); OPIATE SCREEN, URINE Negative (Negative)
[2019-12-13 16:44] LABS: METHADONE SCREEN, URINE Negative (Negative)
--- NOTE | 2019-12-13 17:05 | NUR ---
PT SUPINE ON GURNEY. SAFETY YEAGER DOWN, SITTER IN VIEW AND SUICIDE PRECAUTIONS IN PLACE. PT DENIES ANY REQUESTS OR NEEDS AT THIS TIME. WILL CONTINUE TO MONITOR.
--- NOTE | 2019-12-13 17:59 | NUR ---
PT SUPINE ON GURNEY. REPORTS IMPROVEMENT OF PAIN. SAFETY YEAGER DOWN, SITTER IN VIEW AND SUICIDE PRECAUTIONS IN PLACE. PT DENIES ANY REQUESTS OR NEEDS AT THIS TIME. WILL CONTINUE TO MONITOR.
--- NOTE | 2019-12-13 18:39 | NUR ---
PACKET FAXED TO [facility], [facility] AND [facility]
--- NOTE | 2019-12-13 18:48 | NUR ---
PATIENT REPORT RECEIVED FROM KADY TSE.
--- NOTE | 2019-12-13 19:09 | NUR ---
THROUGHPUT RN: MARLEN ACCEPTING PT DR. EARL
--- NOTE | 2019-12-13 19:23 | NUR ---
PATIENT REPORT CALLED TO [facility], SPOKE WITH KADY PATEL AND KADY PARTIDA. KADY PATEL STATED THAT THEY ARE READY FOR THE PATIENT TO BE TRANSFERRED.
--- NOTE | 2019-12-13 19:54 | NUR ---
PATIENT RESTING IN BED, NO NOTED NEEDS AT THIS TIME. SITTER IN VIEW OF PATIENT. PATIENT WILL BE TRANSFERED TO [facility]. FACILITY HAS ACCEPTED PATIENT. TRANSPORTATION WILL BE ARRANGED.
--- NOTE | 2019-12-13 21:27 | NUR ---
PATIENT RESTING IN BED/EVEN UNLABORED RESPIRATIONS NOTED, NO NOTED NEEDS AT THIS TIME. SITTER WITHIN VIEW OF THE PATIENT. WILL CONTINUE TO MONITOR.
--- NOTE | 2019-12-13 22:23 | NUR ---
PATIENT RESTING IN BED, NO NOTED NEEDS AT THIS TIME. WILL CONTINUE TO MONITOR. SITTER WITHIN VIEW OF THE PATIENT.
--- NOTE | 2019-12-13 22:52 | NUR ---
[facility] IN DEPARTMENT TO TRANSPORT PATIENT. PATIENT TOLERATED WELL. REPORT GIVEN TO MEDIC. PATIENT TRANSPORTED WITH ORIGINAL LEGAL HOLD.
== END 2019-12-13 22:54 ==
LOC: ED 13:46
DX: R45.851 Suicidal ideations (principal); F29 Unspecified psychosis not due to a substance or known physiological condition; F32.9 Major depressive disorder, single episode, unspecified; F17.200 Nicotine dependence, unspecified, uncomplicated; Z91.14 Patient's other noncompliance with medication regimen
CPT/HCPCS: 36415; 80053; 80307; 85025; 96372; 99285; J1885

== ENCOUNTER 2020-01-28 17:20 | Emergency (ER) | payer MEDICAID ==
[~2020-01-28] VITALS: Ht 188 cm; Wt 84.9 kg
--- NOTE | 2020-01-28 17:24 | NUR ---
NO ANSWER FOR TRIAGE @ [id number].
[2020-01-28 17:42] VITALS: BP 114/63
[2020-01-28 18:37] LABS: BASOPHILS % (AUTO) 1 % (0-1); EOSINOPHILS % (AUTO) 0 % (1-7); LYMPHOCYTES % (AUTO) 16 % (22-44); MEAN CORPUSCULAR HEMOGLOBIN 32.2 pg (27.5-34.5); MEAN CORPUSCULAR HGB CONC 34.6 g/dL (33.2-36.2); MEAN PLATELET VOLUME 8.5 fL (7.4-10.4); MONOCYTES % (AUTO) 10 % (2-9); NEUTROPHILS % (AUTO) 74 % (42-75); PLATELET COUNT 290 x10^3/uL (130-400); RED BLOOD COUNT 4.43 x10^6/uL (4.38-5.82)
[2020-01-28 18:41] LABS: MD NO
[2020-01-28 18:47] LABS: CHLORIDE 105 mmol/L (98-107)
[2020-01-28 18:57] LABS: AMPHETAMINE SCREEN, URINE Positive (Negative); BARBITURATE SCREEN, URINE Negative (Negative); BENZODIAZEPINE SCREEN, URINE Negative (Negative); CANNABINOID SCREEN, URINE Positive (Negative); COCAINE SCREEN, URINE Negative (Negative); METHADONE SCREEN, URINE Negative (Negative); OPIATE SCREEN, URINE Negative (Negative)
[2020-01-28 19:02] LABS: ALANINE AMINOTRANSFERASE 50 U/L (12-78); ALBUMIN 3.6 g/dL (3.4-5.0); ALKALINE PHOSPHATASE 85 U/L (45-117); ANION GAP 7 mmol/L (5-15); BILIRUBIN,TOTAL 0.3 mg/dL (0.2-1.0); CALCIUM 8.7 mg/dL (8.5-10.1); CREATININE 0.84 mg/dL (0.7-1.3); TOTAL PROTEIN 7.3 g/dL (6.4-8.2)
--- NOTE | 2020-01-28 20:10 | NUR ---
patient called in lobby. no answer
--- NOTE | 2020-01-28 20:20 | NUR ---
2nd call. no answer
--- NOTE | 2020-01-28 20:30 | NUR ---
3rd call. no answer.
--- NOTE | 2020-01-28 20:30 | NUR ---
[id number]
== END 2020-01-28 20:33 | disposition left against medical advice (07) ==
LOC: ED 20:20
DX: M25.572 Pain in left ankle and joints of left foot (principal); M25.571 Pain in right ankle and joints of right foot; R00.0 Tachycardia, unspecified
CPT/HCPCS: 36415; 80053; 80307; 84443; 85025; 93005; 99284

== ENCOUNTER 2020-01-30 04:14 | Emergency (ER) | payer MEDICAID ==
[~2020-01-30] VITALS: Ht 188 cm; Wt 85.0 kg
--- NOTE | 2020-01-30 04:20 | NUR ---
PT BIB [facility] FOR BILATERAL FOOT PAIN, PT BROUGHT OVER FROM [facility]. HX OF NEUROPATHY, TAKES GABAPENTIN. PT STATES THE PAIN IS "REALLY BAD IN BOTH FEET" AND THAT HE CANT STAY OFF OF THEM. PT NAD, RESTING ON GURNEY, PLACED ON SPO2/BP MONITORING. WCTM. WAITING FOR ERP EVAL
--- NOTE | 2020-01-30 05:05 | NUR ---
PT RESTING ON GUFRANCISCO, TEDDY, PROVIDED NEW SOCKS PER REQUEST AND WARM BLANKETS FOR COMFORT, WCTM.
[2020-01-30] MEDS ORDERED: GABAPENTIN 300 MG CAPSULE PO ONE (05:30)
[2020-01-30] MEDS ORDERED: GABAPENTIN 300 MG CAPSULE ONE (05:31)
[2020-01-30 05:34] VITALS: BP 98/58
--- NOTE | 2020-01-30 05:38 | NUR ---
this rn called jack, spoke to leonardo lundberg who states pt was cleared by them as not suicidal. pt is cleared by them. pt to dc home from this facility. nad, denies additionals needs at this time. mima.
--- NOTE | 2020-01-30 05:50 | NUR ---
Patient given discharge instructions and they have confirmed that they understand the instructions. Patient ambulatory with steady gait. NAD, DENIES ADDITIONAL QUESTIONS OR NEEDS, PROVIDED BUS PASS AND SNACKS. NO PERSONAL BELONGINGS LEFT IN ROOM AT DISCHARGE
== END 2020-01-30 05:51 | disposition home or self-care (01) ==
LOC: ED 05:39
DX: G62.9 Polyneuropathy, unspecified (principal); R20.8 Other disturbances of skin sensation; R45.851 Suicidal ideations
CPT/HCPCS: 99283

== ENCOUNTER 2020-02-17 15:14 | Emergency (ER) | payer MEDICAID ==
[~2020-02-17] VITALS: Ht 188 cm; Wt 85.0 kg
--- NOTE | 2020-02-17 15:48 | NUR ---
PT REFSUING WARM WATER FOOT SOAK
[2020-02-17 16:56] VITALS: BP 101/61
== END 2020-02-17 16:58 | disposition home or self-care (01) ==
LOC: ED 16:30
DX: B35.3 Tinea pedis (principal); Z20.828 Contact with and (suspected) exposure to other viral communicable diseases; M79.671 Pain in right foot; M79.672 Pain in left foot; M79.89 Other specified soft tissue disorders; F17.210 Nicotine dependence, cigarettes, uncomplicated
CPT/HCPCS: 87635; 99283

== ENCOUNTER 2020-03-20 20:00 | Emergency (ER) | payer MEDICAID ==
[~2020-03-20] VITALS: Ht 188 cm; Wt 85.2 kg
[2020-03-20 20:38] VITALS: BP 101/65
--- NOTE | 2020-03-20 21:10 | NUR ---
C/O FOOT PAIN. PT STATES "THAT HIS FEET FEEL MOIST AND THEY HURT." PT WANTS NEW PAIR OF SHOES.HIS CURRENT SOXS ARE NEW. ALSO STATES THAT HE NEEDS A NEW PAIR OF PAINTS BECAUSE THEY ARE DIRTY.
--- NOTE | 2020-03-20 21:12 | NUR ---
PREVIDED WARM BLANKET
[2020-03-20] MEDS ORDERED: IBUPROFEN 600 MG TABLET ONE (21:14)
[2020-03-20] MEDS ORDERED: IBUPROFEN 200 MG TABLET PO ONE (21:30)
--- NOTE | 2020-03-20 21:33 | NUR ---
PT. REFUSED XRAY @ [id number]
--- NOTE | 2020-03-20 21:54 | NUR ---
THIS TECH. WENT IN TO ATTEMPT TO GET AN EKG AND PT. REFUSED TO HAVE EKG DONE.
--- NOTE | 2020-03-20 22:00 | NUR ---
Pt verbally and physically threatening towards staff, refusing all care and testing procedures at this time. Security called to bedside to assist pt to discharge.
== END 2020-03-20 22:05 | disposition home or self-care (01) ==
LOC: ED 21:59
DX: M79.672 Pain in left foot (principal); M79.671 Pain in right foot; F15.10 Other stimulant abuse, uncomplicated; R06.02 Shortness of breath; R05 Cough; Z72.9 Problem related to lifestyle, unspecified
CPT/HCPCS: 99282

== ENCOUNTER 2020-03-24 10:15 | Emergency (ER) | payer MEDICAID ==
[~2020-03-24] VITALS: Ht 188 cm; Wt 83.0 kg
--- NOTE | 2020-03-24 10:46 | NUR ---
"I have a wound by my glute,My legs are swollen and hurt, open scabs on my back that hurt and I'm suicidal as the voices keep bothering me" With further assessment patient left prior housing and has been off his zoloft and thorazine for a few days. No specific plan to hurt himself. No insects noted (bedbugs etc) Room secured with psychiatric precautions Vss
--- NOTE | 2020-03-24 10:57 | NUR ---
sitter within direct eye sight
--- NOTE | 2020-03-24 11:00 | NUR ---
One belonging bag labeled and placed in secure locker Report to Anjelica HILLMAN
--- NOTE | 2020-03-24 11:30 | NUR ---
PT REFUSING TO GIVE URINE AT THIS TIME
--- NOTE | 2020-03-24 13:05 | NUR ---
PT REFUSING TO GIVE URINE
[2020-03-24 13:20] LABS: BASOPHILS % (AUTO) 1 % (0-1); EOSINOPHILS % (AUTO) 0 % (1-7); LYMPHOCYTES % (AUTO) 16 % (22-44); MD NO; MEAN CORPUSCULAR HEMOGLOBIN 31.4 pg (27.5-34.5); MEAN CORPUSCULAR HGB CONC 33.5 g/dL (33.2-36.2); MEAN PLATELET VOLUME 7.9 fL (7.4-10.4); MONOCYTES % (AUTO) 12 % (2-9); NEUTROPHILS % (AUTO) 71 % (42-75); PLATELET COUNT 303 x10^3/uL (130-400); RED BLOOD COUNT 4.49 x10^6/uL (4.38-5.82); RED CELL DISTRIBUTION WIDTH 14.1 % (9.4-14.8)
[2020-03-24 13:33] LABS: ALBUMIN 3.2 g/dL (3.4-5.0); ANION GAP 5 mmol/L (5-15); CALCIUM 8.5 mg/dL (8.5-10.1); CHLORIDE 112 mmol/L (98-107)
[2020-03-24 13:37] LABS: ALANINE AMINOTRANSFERASE 64 U/L (12-78); ALKALINE PHOSPHATASE 82 U/L (45-117); BILIRUBIN,TOTAL 0.5 mg/dL (0.2-1.0); CREATININE 0.63 mg/dL (0.7-1.3); TOTAL PROTEIN 6.7 g/dL (6.4-8.2)
[2020-03-24 13:42] LABS: SALICYLATE LEVEL < 1.7 mg/dL (2.8-20.0)
--- NOTE | 2020-03-24 13:52 | NUR ---
PT RESTING ON ED GURNEY, EYES CLOSED. EVEN RISE AND FALL OF CHEST NOTED. PT IN FULL VIEW OF SITTER OUTSIDE THE ROOM. ROOM SECURED.
[2020-03-24 15:25] VITALS: BP 109/64
[2020-03-24] MEDS ORDERED: IBUPROFEN 600 MG TABLET ONE (15:27)
[2020-03-24] MEDS ORDERED: IBUPROFEN 200 MG TABLET ONE (15:28)
[2020-03-24] MEDS ORDERED: IBUPROFEN 200 MG TABLET PO ONE (15:30)
--- NOTE | 2020-03-24 15:41 | NUR ---
PT REC'VD DISCHARGE INSTRUCTIONS AND EDUCATION. PT HAD NO QUESTIONS. PT AMBULATED TO DC AREA, STEADY GAIT. PT GIVEN TAXI VOUCHER.
== END 2020-03-24 16:08 | disposition home or self-care (01) ==
LOC: ED 10:52
DX: F33.9 Major depressive disorder, recurrent, unspecified (principal); R44.0 Auditory hallucinations; F15.129 Other stimulant abuse with intoxication, unspecified
CPT/HCPCS: 36415; 80053; 80299; 80320; 80329; 85025; 99283; G0480

== ENCOUNTER 2020-10-17 05:49 | Emergency (ER) | payer MEDICAID ==
[~2020-10-17] VITALS: Ht 188 cm; Wt 79.0 kg
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
[2020-10-17] MEDS ORDERED: NEOSPORIN OINT. PKT 1 PACKET ONE (06:22)
[2020-10-17] MEDS ORDERED: ACETAMINOPHEN 325 MG TABLET ONE (06:23)
[2020-10-17] MEDS ORDERED: ACETAMINOPHEN 325 MG TABLET PO ONE (06:30)
[2020-10-17 06:34] VITALS: BP 103/55
--- NOTE | 2020-10-17 06:39 | NUR ---
Patient/Caregiver given discharge instructions and they have confirmed that they understand the instructions. Patient ambulatory with steady gait. NAD, all questions answered appropriately, denies additional needs at this time. No personal belongings left in room after discharge.
== END 2020-10-17 06:36 | disposition home or self-care (01) ==
LOC: ED 06:20
DX: S61.011A Laceration without foreign body of right thumb without damage to nail, initial encounter (principal); X58.XXXA Exposure to other specified factors, initial encounter; Y93.89 Activity, other specified; Y92.009 Unspecified place in unspecified non-institutional (private) residence as the place of occurrence of the external cause; Y99.8 Other external cause status
CPT/HCPCS: 99283

== ENCOUNTER 2020-10-23 09:45 | Inpatient (IN) | payer MEDICAID ==
[~2020-10-23] VITALS: Ht 188 cm; Wt 80.3 kg
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
--- NOTE | 2020-10-23 10:31 | NUR ---
PT UNABLE TO PROVIDE UA SAMPLE AT THIS TIME ("I CAN'T, I'M SO DEHYDRATED FROM THROWING UP"), WILL CONTINUE TO ENCOURAGE TO VOID.
--- NOTE | 2020-10-23 11:04 | NUR ---
PT LAYING ON GURNEY MOSTLY SLEEPING, RESPONDS TO STAFF WITH VERBAL STIMULI, NAD, NO NEEDS AT THS TIME, CALL LIGHT WITHIN REACH.
[2020-10-23 11:30] LABS: ALANINE AMINOTRANSFERASE 37 U/L (12-78); ALBUMIN 3.5 g/dL (3.4-5.0); ANION GAP 10 mmol/L (5-15); CALCIUM 8.7 mg/dL (8.5-10.1); CHLORIDE 106 mmol/L (98-107); CREATININE 0.89 mg/dL (0.7-1.3)
[2020-10-23 11:33] LABS: ALKALINE PHOSPHATASE 78 U/L (45-117); BILIRUBIN,TOTAL 0.8 mg/dL (0.2-1.0); MEAN CORPUSCULAR HEMOGLOBIN 31.6 pg (27.5-34.5); MEAN CORPUSCULAR HGB CONC 33.7 g/dL (33.2-36.2); MEAN PLATELET VOLUME 8.1 fL (7.4-10.4); PLATELET COUNT 294 x10^3/uL (130-400); RED BLOOD COUNT 5.11 x10^6/uL (4.38-5.82); RED CELL DISTRIBUTION WIDTH 14.4 % (9.4-14.8); TOTAL PROTEIN 7.3 g/dL (6.4-8.2)
[2020-10-23 12:03] LABS: <RBC MORPHOLOGY> NORMAL; BAND#(MANUAL) 3.51 x10^3/uL; BANDS%(MANUAL) 14 % (0-7); BASOS#(MANUAL) 0.25 x10^3/uL (0-0.1); BASOS% (MANUAL) 1 % (0-1); EOS#(MANUAL) 0.25 x10^3/uL (0.0-0.4); EOS% (MANUAL) 1 % (1-7); LYMPHS% (MANUAL) 2 % (22-44); MONOS#(MANUAL) 1.51 x10^3/uL (0.3-2.7); MONOS% (MANUAL) 6 % (2-9); SEG#(MANUAL) 19.08 x10^3/uL (1.8-6.8); SEGS% (MANUAL) 76 % (42-75)
[2020-10-23 12:04] LABS: <PLATELET ESTIMATE> ADEQUATE; <PLT MORPHOLOGY> NORMAL PLT MORPH
--- NOTE | 2020-10-23 12:05 | NUR ---
REPORT GIVEN TO TUCKER HILLMAN
--- NOTE | 2020-10-23 12:05 | NUR ---
RECEIVED REPORT FROM KADY NAVAS. PT RESTING ON EVELYNE. NADN. BRADLEY.
--- NOTE | 2020-10-23 12:06 | NUR ---
PT AWARE OF NEED FOR UA. URINAL LEFT AT BEDSIDE.
--- NOTE | 2020-10-23 12:58 | NUR ---
PT RESTING ON GURNEY. NADN. BRADLEY.
[2020-10-23 13:02] LABS: MICROSCOPIC AUTO
--- NOTE | 2020-10-23 13:55 | NUR ---
PT RESTING ON GURNEY. NADN. BRADLEY.
[2020-10-23] MEDS ORDERED: OMNIPAQUE 350 MG/ML, 100ML BOTTLE ONE (14:52)
--- NOTE | 2020-10-23 14:52 | NUR ---
PT HR NOTED TO BE 43-50 AND BP DECREASED TO 82/52. ERP NOTIFIED.
[2020-10-23] MEDS ORDERED: SODIUM CHLORIDE 0.9% 1,000ML IVBOLUS ONE ×5 (15:30→19:00)
--- NOTE | 2020-10-23 15:50 | NUR ---
WILLY RN: PT REQUESTING SOMETHING TO DRINK, EXPLAINED IN LENGTH THAT HE IS NPO, PT STATES, "IM GOING TO [facility]". INCREASE EMOTIONAL SUPPORT GIVEN
[2020-10-23] MEDS ORDERED: PIPERACILLIN/TAZO 3.375 GM in DEXTROSE 5% 50 ML IVPB ONE (16:00)
--- NOTE | 2020-10-23 16:15 | NUR ---
WILLY RN: PT YELLING AND CURSING, "I WANT TO EAT". INCREASE EMOTIONAL SUPPORT GIVEN. PT REQUESTING PAIN MEDICATION.
[2020-10-23] MEDS ORDERED: MORPHINE SULFATE 4 MG/ML, 1ML ONE (16:26)
[2020-10-23] MEDS ORDERED: MORPHINE SULFATE 4 MG/ML, 1ML IVPush PRN (16:30)
--- NOTE | 2020-10-23 16:37 | NUR ---
FLOAT RN: PT INCONTIENT OF STOOL, WASHED AND REPOSITIONED FOR COMFORT.
--- NOTE | 2020-10-23 16:49 | NUR ---
THIRD LITER NS INFUSING. BP REMAINS 85/45. ERP NOTIFIED.
[2020-10-23] MEDS ORDERED: ONDANSETRON 2MG/ML, 2ML IVPush PRN (17:00)
[2020-10-23] MEDS ORDERED: POLYETHYLENE GLYCOL 17 GM PACKET PO PRN (17:00)
[2020-10-23] MEDS ORDERED: SENNA/DOCUSATE TABLET PO PRN (17:00)
[2020-10-23] MEDS ORDERED: ONDANSETRON ODT 4 MG PO PRN (17:00)
[2020-10-23] MEDS ORDERED: morphine SULFATE 10 MG/ML, 1ML IVPush PRN (17:00)
[2020-10-23] MEDS ORDERED: HYDROcodone/APAP 5/325 TABLET PO PRN (17:00)
--- NOTE | 2020-10-23 17:31 | NUR ---
THIRD LITER NS INFUSED. PT BP 84/50. ERP DR. MARIN NOTIFIED. PER ERP STARTED 4TH LITER NS AND REASSESS PT AFTER.
--- NOTE | 2020-10-23 18:09 | NUR ---
PT RESTING ON GURTED. NADN. BP NOTED TO BE 96/39. ERP NOTIFIED.
--- NOTE | 2020-10-23 18:33 | NUR ---
PT BP LAYING ON HIS BACK IS 95/62. ERP NOTIFIED.
--- NOTE | 2020-10-23 18:44 | NUR ---
REPORT GIVEN TO CARLA GRAMAJO RN. ALL QUESTIONS ANSWERED. AWAITING PT TRANSPORT.
--- NOTE | 2020-10-23 18:50 | NUR ---
REPORT GIVEN TO TERRELL SORTO RN.
[2020-10-23 20:43] LABS: AMPHETAMINE SCREEN, URINE Positive (Negative); BARBITURATE SCREEN, URINE Negative (Negative); BENZODIAZEPINE SCREEN, URINE Negative (Negative); CANNABINOID SCREEN, URINE Positive (Negative); COCAINE SCREEN, URINE Negative (Negative); METHADONE SCREEN, URINE Negative (Negative); OPIATE SCREEN, URINE Positive (Negative)
[2020-10-23 21:25] LABS: CLOSTRIDIUM DIFFICILE ANTIGEN NEGATIVE; CLOSTRIDIUM DIFFICILE TOXIN NEGATIVE (Negative)
[2020-10-23] MEDS: NICOTINE 7 MG/24 HR PATCH.TD24 TD SCH (21:33)
[2020-10-23] MEDS: ENOXAPARIN 40 MG/0.4 ML SQ SCH (21:33)
[2020-10-23] MEDS: LACTATED RINGERS 1,000 ML IV SCH (21:34)
[2020-10-23] MEDS ORDERED: SERT50TA PO (21:50)
[2020-10-23] MEDS ORDERED: thorazine (21:50)
[2020-10-23 21:51] VITALS: BP 92/53
[2020-10-23] MEDS ORDERED: DIPHENHYDRAMINE 25 MG CAPSULE PO PRN (22:30)
[2020-10-23] MEDS: PIPERACILLIN/TAZO 3.375 GM in DEXTROSE 5% 50 ML IV SCH (22:30)
[2020-10-24] VITALS (7 sets, daily range): BP systolic 88–101; BP diastolic 49–58
[2020-10-24] MEDS ORDERED: ALBUMIN HUMAN 25% 100 ML IV ONE (00:30)
[2020-10-24] MEDS: PIPERACILLIN/TAZO 3.375 GM in DEXTROSE 5% 50 ML IV SCH ×2 (05:13→11:09)
[2020-10-24] MEDS: LACTATED RINGERS 1,000 ML IV SCH ×3 (06:22→20:46)
[2020-10-24 07:56] LABS: MEAN CORPUSCULAR HEMOGLOBIN 31.6 pg (27.5-34.5); MEAN CORPUSCULAR HGB CONC 33.4 g/dL (33.2-36.2); MEAN PLATELET VOLUME 7.6 fL (7.4-10.4); PLATELET COUNT 223 x10^3/uL (130-400); RED BLOOD COUNT 4.63 x10^6/uL (4.38-5.82); RED CELL DISTRIBUTION WIDTH 14.3 % (9.4-14.8)
[2020-10-24 08:09] LABS: ALANINE AMINOTRANSFERASE 28 U/L (12-78); ALBUMIN 2.8 g/dL (3.4-5.0); ANION GAP 4 mmol/L (5-15); CALCIUM 8.1 mg/dL (8.5-10.1); CHLORIDE 109 mmol/L (98-107); CREATININE 0.66 mg/dL (0.7-1.3)
[2020-10-24 08:16] LABS: ALKALINE PHOSPHATASE 54 U/L (45-117); BILIRUBIN,TOTAL 0.6 mg/dL (0.2-1.0); TOTAL PROTEIN 6.1 g/dL (6.4-8.2)
[2020-10-24 08:19] LABS: BAND#(MANUAL) 0.22 x10^3/uL; BANDS%(MANUAL) 3 % (0-7); BASOS#(MANUAL) 0.07 x10^3/uL (0-0.1); BASOS% (MANUAL) 1 % (0-1); EOS% (MANUAL) 4 % (1-7); LYMPH#(MANUAL) 1.63 x10^3/uL (1-3.4); LYMPHS% (MANUAL) 22 % (22-44); MONOS% (MANUAL) 4 % (2-9); REACTIVE LYMPHS # (MANUAL) 0.74 x10^3/uL (0-0); REACTIVE LYMPHS % (MANUAL) 10 % (0-0); SEG#(MANUAL) 4.14 x10^3/uL (1.8-6.8); SEGS% (MANUAL) 56 % (42-75)
[2020-10-24 08:20] LABS: <PLATELET ESTIMATE> ADEQUATE; <PLT MORPHOLOGY> NORMAL PLT MORPH; ANISOCYTOSIS 1+
[2020-10-24 08:54] LABS: HCT (SEDRATE) 43.8 % (39.2-51.8)
[2020-10-24] MEDS: ACETAMINOPHEN 325 MG TABLET PO PRN (12:18)
[2020-10-24 13:05] LABS: CRYPTOSPORIDIUM ANTIGEN Negative (Negative)
[2020-10-24] MEDS: ENOXAPARIN 40 MG/0.4 ML SQ SCH (17:08)
[2020-10-24] MEDS: NICOTINE 7 MG/24 HR PATCH.TD24 TD SCH (20:12)
[2020-10-25 02:01] VITALS: BP 99/56
[2020-10-25 07:04] VITALS: BP 85/52
[2020-10-25 07:59] VITALS: BP 101/57
[2020-10-25] MEDS: ACETAMINOPHEN 325 MG TABLET PO PRN (08:07)
== END 2020-10-25 11:34 | disposition home or self-care (01) | DRG 871 ==
LOC: ED 13:43 → EDIP 16:19 → 5SO 19:11
PROVIDERS: ADMIT Family Medicine; ATTEND Family Medicine
DX: A41.9 Sepsis, unspecified organism (principal); K56.2 Volvulus; K56.600 Partial intestinal obstruction, unspecified as to cause; K52.9 Noninfective gastroenteritis and colitis, unspecified; F17.200 Nicotine dependence, unspecified, uncomplicated; F15.90 Other stimulant use, unspecified, uncomplicated; F12.90 Cannabis use, unspecified, uncomplicated; R65.20 Severe sepsis without septic shock; S81.812A Laceration without foreign body, left lower leg, initial encounter; B18.2 Chronic viral hepatitis C; S61.011A Laceration without foreign body of right thumb without damage to nail, initial encounter; S61.012A Laceration without foreign body of left thumb without damage to nail, initial encounter; W22.8XXA Striking against or struck by other objects, initial encounter; Y93.89 Activity, other specified; Z91.19 Patient's noncompliance with other medical treatment and regimen; Y92.89 Other specified places as the place of occurrence of the external cause; Y99.8 Other external cause status
CPT/HCPCS: 36415; 74177; 80053; 80307; 81001; 83605; 83690; 84145; 85025; 85651; 86140; 87040; 87046; 87324; 87328; 87329; 87427; 89055; 93005; 96374; 96375; 96376; 99285; G0378; J1650; J2405; J2543; P9047; Q9967; J2270; J7030; J7120; Q0163

== ENCOUNTER 2020-11-17 21:28 | Emergency (ER) | payer MEDICAID ==
[~2020-11-17] VITALS: Ht 188 cm; Wt 100.2 kg
[~2020-11-17 21:28] MED LIST changes: +SERT50TA PO; +thorazine
[2020-11-17 22:51] LABS: BASOPHILS % (AUTO) 1 % (0-1); EOSINOPHILS % (AUTO) 1 % (1-7); LYMPHOCYTES % (AUTO) 11 % (22-44); MEAN CORPUSCULAR HEMOGLOBIN 32.8 pg (27.5-34.5); MEAN CORPUSCULAR HGB CONC 34.8 g/dL (33.2-36.2); MEAN PLATELET VOLUME 8.4 fL (7.4-10.4); MONOCYTES % (AUTO) 14 % (2-9); NEUTROPHILS % (AUTO) 73 % (42-75); PLATELET COUNT 302 x10^3/uL (130-400); RED BLOOD COUNT 4.18 x10^6/uL (4.38-5.82); RED CELL DISTRIBUTION WIDTH 14.6 % (9.4-14.8)
--- NOTE | 2020-11-17 22:57 | NUR ---
pt to room from lobby
[2020-11-17 23:03] LABS: ALBUMIN 3.1 g/dL (3.4-5.0); CALCIUM 8.6 mg/dL (8.5-10.1); CHLORIDE 103 mmol/L (98-107)
[2020-11-17 23:10] LABS: ALANINE AMINOTRANSFERASE 57 U/L (12-78); ALKALINE PHOSPHATASE 105 U/L (45-117); ANION GAP 8 mmol/L (5-15); BILIRUBIN,TOTAL 0.2 mg/dL (0.2-1.0); CREATININE 0.74 mg/dL (0.7-1.3); TOTAL PROTEIN 7.1 g/dL (6.4-8.2)
[2020-11-17 23:17] LABS: SALICYLATE LEVEL < 1.7 mg/dL (2.8-20.0)
--- NOTE | 2020-11-17 23:23 | NUR ---
PT STATING HE FEELS LIKE HE IS IN A STATE OF PYSCHOSIS. WHEN ASKED WHAT MAKES HIM THINK THIS HE SAYS I DONT KNOW BUT I FEEL LIKE I AM. PT DENIES DRINKING METH/HEROIN BUT STATES HE SMOKED MARIJUANA. PT APPEARS VERY TIRED. PT REPORTS TAKING ALL HIS PSYCH MEDS LIKE USUAL. ATTACHED TO MONOTORS. VSS. BARBER. BED I LOW, RAILS ENGAGED. CALL LIGHT ON LAP. Addendum: 11/17/20 at 3627 by [email or web address] PT DENIES HEARING VOICES AND HALLUCINATIONS
--- NOTE | 2020-11-18 00:57 | NUR ---
Patient is resting comfortably in bed. Bed in lowest, rails engaged, call light on lap. Vital Signs within normal limits. WCTM. PT HAS BEEN SKED 3 TIMES TO GET UA SAMPLE BUT ONTINUES TO SAY HE WILL GET IT AND KEEPS GOING TO SLEEP
[2020-11-18 01:05] VITALS: BP 105/56
--- NOTE | 2020-11-18 02:18 | NUR ---
PT GIVEN MILK, CEREAL, AND BUS PASS PRIOR TO DC
== END 2020-11-18 01:09 | disposition home or self-care (01) ==
LOC: ED 22:00
DX: F15.150 Other stimulant abuse with stimulant-induced psychotic disorder with delusions (principal); F15.129 Other stimulant abuse with intoxication, unspecified; Z72.9 Problem related to lifestyle, unspecified
CPT/HCPCS: 36415; 80053; 80299; 80320; 80329; 85025; 99283; G0480

== ENCOUNTER 2020-11-21 13:21 | Emergency (ER) | payer MEDICAID ==
[~2020-11-21] VITALS: Ht 175.3 cm; Wt 80.0 kg
--- NOTE | 2020-11-21 13:31 | NUR ---
PT BIBA. PER EMS PT ADMITS TO USING METH, WEED, AND ALCOHOL THIS MORNING. PT STATES "MY HANDS ARE BURNING OFF". EMS REPORTS PT WAS COMBATIVE AND UNCOOPERATIVE WITH THEM. PT REFUSING VITAL SIGNS OR TO HAVE AN NAME BAND PLACED. PT CURSING AT THIS RN "YOU GUYS JUST FUCKING WANT ME TO , YOU WON'T ACTUALLY HELP ME". THIS RN ATTEMPTED TO REDIRECT PT, PT CONTINUES TO SCREAM AND YELL. PT REFUSING TO ANSWER ANY QUESTIONS AT THIS TIME. PT STATES "ALL I DID WAS A LITTLE CRYSTAL METH AND DRANK SOME, THEN DID WEED TO CHILL." PT RESTING IN [facility], PT REFUSING ALL MONITORING AT THIS TIME, [facility].
--- NOTE | 2020-11-21 13:39 | NUR ---
PT ALLOWED THIS RN TO MEDICATE HIM AND TAKE VS AT THIS TIME. PT STILL CUSSING SAYING "JUST FUCKING HURRY ASSHOLE.". VANNESA.
[2020-11-21] MEDS ORDERED: LORazepam 2 MG/ML, 1ML ONE (13:40)
[2020-11-21 13:44] VITALS: BP 120/52
--- NOTE | 2020-11-21 13:46 | NUR ---
PT RIPPED OFF ALL MONITORING AT THIS TIME. PT STATES "YOU CRAZY BITCH ARE TRYING TO BURN ME WITH THIS STUFF", PT EDUCATED ON IMPORTANCE OF MONITORING AND VITAL SIGNS. PT CONTINUES TO REFUSE ANY MONITORING. WCTM.
[2020-11-21] MEDS ORDERED: LORazepam 2 MG/ML, 1ML IM ONE (14:00)
--- NOTE | 2020-11-21 14:26 | NUR ---
BREAK RN: PT REFUSES TO LEAVE ANY MONITORS ON. EXPLAINED TO PT WHY HE NEEDS TO WEAR THEM. PT KEEPS TAKING THEM OFF. PILLOW GIVEN. VS STABLE. WILL CONTINUE TO MONITOR WHILE PRIMARY RN IS ON BREAK.
--- NOTE | 2020-11-21 15:07 | NUR ---
BREAK RN: REPORT GIVEN TO KADY BURT
--- NOTE | 2020-11-21 15:55 | NUR ---
PT REFUSING ALL MONITORING. PT GIVEN DISCHARGE INSTRUCTIONS AND EDUCATION. PT REFUSING FOR DISCHARGE VITAL SIGNS TO BE TAKEN. PT REFUSING TO GET DRESSED OR GET OUT OF GURNEY. SECURITY CALLED AT THIS TIME TO ESCORT PT OUT OF ROOM.
== END 2020-11-21 16:23 | disposition home or self-care (01) ==
LOC: ED 13:26
DX: F12.121 Cannabis abuse with intoxication delirium (principal); F15.121 Other stimulant abuse with intoxication delirium
CPT/HCPCS: 96372; 99283; J2060

== ENCOUNTER 2020-11-24 17:30 | Observation (INO) | payer MEDICAID ==
[~2020-11-24] VITALS: Ht 188 cm; Wt 84.1 kg
[2020-11-24 17:46] VITALS: BP 98/61
== END 2020-11-25 03:54 | disposition home or self-care (01) ==
LOC: ED 21:44 → EDIP 22:52
PROVIDERS: ADMIT Emergency Medicine; ATTEND Emergency Medicine
DX: R45.851 Suicidal ideations (principal); R00.1 Bradycardia, unspecified; F11.90 Opioid use, unspecified, uncomplicated; F15.90 Other stimulant use, unspecified, uncomplicated; F17.200 Nicotine dependence, unspecified, uncomplicated
CPT/HCPCS: 36415; 80053; 80299; 80307; 80320; 80329; 84145; 84443; 85025; 86592; 87040; 93005; 99284; G0378